=== PATIENT | female | born 1960 | race African-American/Black ===

== ENCOUNTER 2022-10-03 21:25 | Emergency (ER) | payer OTHER ==
[~2022-10-03] VITALS: Ht 157.5 cm; Wt 118.0 kg
[2022-10-03] MEDS ORDERED: KETOROLAC 60MG/2ML VIAL IM STA (22:28)
[2022-10-03] MEDS ORDERED: LORAZEPAM 1MG TABLET PO ONE (22:30)
[2022-10-03 23:07] VITALS: BP 179/88
== END 2022-10-03 23:28 | disposition left against medical advice (07) ==
LOC: ER 21:25
DX: M54.59 Other low back pain (principal); M79.651 Pain in right thigh; R03.0 Elevated blood-pressure reading, without diagnosis of hypertension; J45.909 Unspecified asthma, uncomplicated
CPT/HCPCS: 96372; 99283; J1885